=== PATIENT | male | born 1970 | race Caucasian/White ===

== ENCOUNTER 2019-01-09 07:25 | Day surgery (SDC) | payer OTHER ==
[2018-12-25 12:08] VITALS: BMI 40.8
[~2019-01-09 07:25] MED LIST: CEFAZOLIN 2 GM in DEXTROSE 5%-WATER - 50 ML IVPB ONE; CELECOXIB 200 MG CAPSULE PO ONE; GABAPENTIN 300 MG CAPSULE (FP) PO ONE; TRANEXAMIC ACID 1000 MG/10 ML VIAL IVPUSH ONE; oxyCODONE HCL 10 MG SUSTAINED ACTING TABLET PO ONE
[2019-01-09] MEDS ORDERED: ceFAZolin SODIUM 1 GM VIAL ONE ×2 (07:26→09:44)
[2019-01-09] MEDS ORDERED: THROMBIN (RECOMBINANT) 5,000 UNIT VIAL TP ONE (07:26)
[2019-01-09] MEDS ORDERED: GELATIN, ABSORBABLE 12-7MM EACH SPONGE TP ONE (07:26)
[2019-01-09] MEDS ORDERED: oxyCODONE HCL 10 MG SUSTAINED ACTING TABLET PO ONE (07:55)
[2019-01-09] MEDS ORDERED: CELECOXIB 200 MG CAPSULE PO ONE (07:58)
--- NOTE | 2019-01-09 07:58 | HP ---
[facility] - Chief Complaint Chief Complaint: left knee pain - Past Medical History Allergies/Adverse Reactions: Allergies Allergy/AdvReac Type Severity Reaction Status Date / Time No Known Allergies Allergy Verified 07/26/14 07:19 - Current Medications Current Medications: Home Medications Medication Instructions Recorded Naproxen Sodium [Aleve] 440 mg PO BID 12/25/18 Satellite Physical Exam - Physical Examination General Appearance: Well Nourished, Well Developed, Alert & Oriented x3 ENT: Clear Lung: Normal air movement Heart: Regular rate & rhythm Extremities: Other (left knee- +swelling, + ttp medially, decr rom, nvi xrays show grade 4 medial djd) Neurological: Intact, Alert, Oriented Satellite Impression/Plan - Impression/Plan Impression: left knee medial djd Operative Procedure: left medial jenny ukr Date to be Performed: 01/09/19
[2019-01-09] MEDS ORDERED: GABAPENTIN 300 MG CAPSULE (FP) PO ONE (08:00)
[2019-01-09] MEDS ORDERED: ROPIVICAINE 0.2%/MORPH PF/KETOROLAC - 51ML DISP.SYRINGE IA ONE ×3 (08:12→11:17)
[2019-01-09] MEDS ORDERED: MIDAZOLAM HCL 2 MG/2 ML SINGLE DOSE VIAL ONE (08:47)
[2019-01-09] MEDS ORDERED: ROPIVACAINE HCL 0.5% 30ML VIAL ONE (08:48)
[2019-01-09] MEDS ORDERED: ONDANSETRON 4 MG/2 ML VIAL IVPUSH PRN (09:57)
[2019-01-09] MEDS ORDERED: MAG HYDROX/AL HYDROX/SIMETH 30 ML UNIT-DOSE CUP PO PRN (09:57)
[2019-01-09] MEDS ORDERED: LACTATED RINGERS SOLUTION 1,000 ML IV SCH (10:00)
[2019-01-09] MEDS ORDERED: GELATIN, ABSORBABLE 100 EACH SPONGE TP ONE ×2 (10:11→11:17)
[2019-01-09] MEDS ORDERED: THROMBIN (BOVINE) 5,000 UNIT VIAL TP ONE ×2 (10:11→11:17)
--- NOTE | 2019-01-09 11:35 | OP ---
Operative Note - Note: Operative Date: 01/09/19 (tong) Pre-Operative Diagnosis: left knee medial djd Operation: left medial jenny ukr Post-Operative Diagnosis: Same as Pre-op Surgeon: Kam Britt External Auditor: Thomas Narvaez Anesthesiologist/ENVIRONMENTAL PROGRAMS SPECIALIST: Karen Waterman Anesthesia: Spinal, Local Specimens Removed: bone fragments Estimated Blood Loss (mls): 100 Operative Report Dictated: Yes
[2019-01-09] MEDS ORDERED: ACETAMINOPHEN 325 MG TABLET (FP) ONE (12:51)
[2019-01-09] MEDS ORDERED: oxyCODONE HCL 5 MG TABLET PO PRN (12:55)
--- NOTE | 2019-01-09 14:36 | OP ---
DATE OF OPERATION: 01/09/2019 PREOPERATIVE DIAGNOSIS: Degenerative joint disease, left knee. POSTOPERATIVE DIAGNOSIS: Degenerative joint disease, left knee. PROCEDURE: Left medial unicompartmental knee replacement with robotic-assisted navigation (MAKOplasty) and patelloplasty. SURGICAL ATTENDING: Kam Birtt MD SUSPENDER MAKER: BREONNA Cowan ANESTHESIA: Regional and spinal. CLOSURE: Medial unicompartmental GEOFFREY components with a 6 femur, 6 tibia, and an 8 polyethylene; No. 1 Vicryl, fascia; 0 and 2-0, subcutaneous; 3-0 Monocryl subcuticular with skin glue; 4-0 undyed Vicryl for pin sites. ESTIMATED BLOOD LOSS: Negligible. COMPLICATIONS: None. CONDITION: To recovery in stable condition. DESCRIPTION OF OPERATIVE PROCEDURE: Patient was taken to the operating room on January 09, 2019. Spinal and regional anesthesia was administered by the anesthesiologist. IV Kefzol and TXA were administered prophylactically prior to the case. A well-padded pneumatic tourniquet was placed on the left proximal thigh. The left lower extremity was prepped and draped in the usual sterile fashion. A 6- to 8-cm longitudinal incision over the medial side of the patella from mid patella to the tibial tubercle was incised and was deepened using Bovie cautery. An arthrotomy was then made just medial to the patellar tendon and the patella. Subperiosteal dissection was done on the anteromedial proximal tibia all the way back to the MCL. Partial fat pad excision was performed, exposing the medial compartment. Checkpoint was malleable at both the femur and the tibia. Using 2 stab incisions in the femur 1 handbreadth above the patella on the femur and 2 stab incisions 1 handbreadth below the tibial tubercle on the tibia, 2 threaded pins were drilled in parallel fashion from anterior to posterior, going through the proximal cortex and engaging the 2nd but not through the 2nd cortex. To these threaded pins were fastened navigation rays, 1 on the femur and 1 on the tibia. The knee was then registered with the navigation device with the center of the rotation of the hip, medial and lateral malleoli, and multiple points both on the femur and on the tibia. Excellent registration of less than 0.5 mm was obtained on both to ensure adequate registration. The navigation device ensured us to "pop the bubbles" both on the femur and the tibia and that was performed and passed registration. The knee was then thoroughly inspected to remove all osteophytes both on the femur and the tibia. Also, osteophytes on the trochlea and on the surface of the patella were removed as well. The knee was then stressed with valgus stress at 0, 30, 60, 90, and 120 degrees of flexion. This propagated a looseness/tightness graft. The virtual positions of the components were then optimized to ensure an excellent graft. The tracking also was optimized by manipulating the virtual position to ensure that the femoral component articulated with the central portion of the tibial component. The robot was then brought into the field and was registered. The robot was used to bur the bone on both the femur and the tibia as to the specifications of the components. The trial components were then applied on both the femur and the tibia with an appropriate polyethylene insert. The knee was taken through a range of motion and found to have full extension, full flexion, with excellent stability. Stressing the graft revealed an excellent looseness/tightness graft with the trial components in place. The trial components were removed. The knee was thoroughly irrigated with a copious amount of antibiotic irrigation. The real components were then cemented in using modern generation cement techniques with antibiotic cement and pressurization. After the cement was hardened, the knee was thoroughly inspected to remove out all excess cement. The real polyethylene insert was then clipped into place. Range of motion and stability were again assessed to be as they were with the trials. At this time, the pins and the checkpoints were removed. The knee was again thoroughly irrigated. The arthrotomy was closed with No. 1 Vicryl, 0 and 2-0 subcutaneous, and 3-0 Monocryl subcuticular with skin glue for the skin, 4-0 undyed Vicryl for the pin sites. Sterile pressure dressing was placed over the knee. Patient awakened from anesthesia and transferred to recovery in stable condition. No complications. Estimated blood loss negligible. X-rays postoperatively revealed excellent position of the components. Ankit RAMOS/[id number]
[2019-01-09] MEDS: ACETAMINOPHEN 325 MG TABLET (FP) PO SCH (21:39)
[2019-01-09] MEDS: CEFAZOLIN 2 GM/D5W 2 GM/50 ML ML IVPB SCH (21:39)
[2019-01-09] MEDS: SENNOSIDES/DOCUSATE COMBO (SENNA PLUS) TABLET (UD) PO SCH (21:41)
[2019-01-10] MEDS: oxyCODONE HCL 5 MG TABLET PO PRN ×3 (00:30→09:54)
[2019-01-10] MEDS: ACETAMINOPHEN 325 MG TABLET (FP) PO SCH ×3 (00:32→07:49)
[2019-01-10] MEDS: CEFAZOLIN 2 GM/D5W 2 GM/50 ML ML IVPB SCH (01:38)
[2019-01-10 06:30] VITALS: BP 127/77; PULSE 82; TEMP 98.2
[2019-01-10] MEDS: PANTOPRAZOLE 40 MG TABLET (FP) PO SCH ×2 (07:48→09:53)
[2019-01-10] MEDS: SENNOSIDES/DOCUSATE COMBO (SENNA PLUS) TABLET (UD) PO SCH ×2 (07:48→09:54)
[2019-01-10] MEDS: MULTIVITAMINS (DAILY MVI) TABLET (FP) PO SCH ×2 (07:49→09:54)
--- NOTE | 2019-01-10 07:58 | PN ---
Progress Note (short form) - Note Progress Note: Ortho Pt seen and examined s/p left medial jenny ukr pod #1 Selected Entries 01/10/19 05:00 Temperature 98.2 F Pulse Rate 82 Respiratory 19 Rate Blood Pressure 127/77 dressing c/d/i, calf soft, nt rom 0-40, nvi a/p PT dvt ppx pain control d/c home today f/u in 1 week
--- NOTE | 2019-01-10 07:59 | DS ---
Physical Examination Vital Signs: Vital Signs Temperature 98.2 F 01/10/19 05:00 Pulse Rate 82 01/10/19 05:00 Respiratory Rate 19 01/10/19 05:00 Blood Pressure 127/77 01/10/19 05:00 O2 Sat by Pulse Oximetry (%) 97 01/10/19 06:29 Discharge Summary Reason For Visit: OSTEOARTHRITIS Procedures: Principal: left medial jenny ukr Hospital Course: admitted for elective left medial jenny ukr, uneventful post-op, stable for d/c Condition: Good - Instructions Diet, Activity, Other Instructions: Post-op Instructions-Partial Knee Replacement Call the office for a follow-up appointment in 1 week - [phone] Aspirin 325mg daily for 6 weeks. Pain medication was sent into your pharmacy. Apply Graduated Compression Stockings (TEDs) to both lower extremities- remove daily for hygiene ONLY Apply Sequential Compression Device (SCDs) to both Lower extremities remove for PT and hygiene ONLY Apply cold packs to affected area for 15 minutes every 2 hours. Physical Therapist will come to your home for the first 5 days. You will be set up with outpatient PT at your first post-operative visit. Patient may ambulate as tolerated-encourage self care (at least every 2-3 hours while awake) with walker or cane Maintain Aquacel (waterproof) dressing to operative wound (will be removed by surgeon at first office visit) Shower with Aquacel dressing in place-if Aquacel integrity compromised, remove and apply dry sterile dressing and notify Orthopedist. DO NOT SHOWER unless Orthopedists approves without Aquacel dressing CONTACT THE OFFICE FOR ANY CHANGE IN YOUR CONDITION (for example-fever greater than 102 degrees, excessive bleeding from operative site, purulent drainage, severe swelling or pain) GO TO THE EMERGENCY ROOM IF THERE IS A MEDICAL EMERGENCY Knee Precautions: * Keep a rolled towel under affected heel while in bed or chair (to keep knee in extension) * Keep affected leg elevated except during mealtimes * DO NOT PLACE PILLOW UNDER AFFECTED KNEE * If you have any questions, please do not hesitate to call the office - [phone]. Referrals: Kam Britt MD [Staff Physician] - Disposition: VNS/HOME HEALTH CARE - Home Medications Comprehensive Discharge Medication List: Ambulatory Orders Naproxen Sodium [Aleve] 440 mg PO BID 12/25/18 Aspirin [ASA -] 325 mg PO DAILY@0800 tablet 01/09/19 Oxycodone HCl/Acetaminophen [Percocet 5-325 mg Tablet -] 1 - 2 tab PO Q6H #50 tab MDD 8 01/09/19
[2019-01-10] MEDS ORDERED: ASPIRIN 325 MG TABLET PO SCH (08:00)
== END 2019-01-10 12:37 | disposition home health service (06) ==
LOC: FM/S 07:25 → FASUSAT 07:25
PROVIDERS: ATTEND Orthopaedic Surgery
PROC: 8E0YXBZ Computer Assisted Procedure of Lower Extremity (ICD-10-PCS; 2019-01-09)
PROC: 8E0Y0CZ Robotic Assisted Procedure of Lower Extremity, Open Approach (ICD-10-PCS; 2019-01-09)
PROC: 0SRD0L9 Replacement of Left Knee Joint with Medial Unicondylar Synthetic Substitute, Cemented, Open Approach (ICD-10-PCS; principal; 2019-01-09 10:04)
DX: M17.12 Unilateral primary osteoarthritis, left knee (principal)
CPT/HCPCS: 20985; 27446; C1776; S2900; 73560-TC-LT-FY; 94760; 97116-GP; 97163-GP

== ENCOUNTER 2019-01-17 02:50 | Emergency (ER) | payer OTHER ==
[2019-01-17 03:22] VITALS: BP 130/77; PULSE 86; TEMP 98; BMI 39.5
--- NOTE | 2019-01-17 04:19 | PDOC ---
*Physical Exam - Vital Signs Last Vital Signs Temp Pulse Resp BP Pulse Ox 98 F 86 19 130/77 99 01/17/19 02:50 01/17/19 02:50 01/17/19 02:50 01/17/19 02:50 01/17/19 02:50 Medical Decision Making - Medical Decision Making 01/17/19 04:18 Patient seen by the advanced practice provider under my direct supervision. Ancillary testing reviewed as necessary. I agree with plan as outlined by the advanced practice provider. *DC/Admit/Observation/Transfer Diagnosis at time of Disposition: Adverse drug reaction - Discharge Dispostion Condition at time of disposition: Fair - Referrals Referrals: Boris Grady MD [Primary Care Provider] - - Patient Instructions - Post Discharge Activity
--- NOTE | 2019-01-17 04:38 | PDOC ---
History of Present Illness - General Chief Complaint: RX Refill Stated Complaint: MEDICATION PROBLEM Time Seen by Provider: 01/17/19 04:12 History Source: Patient, Spouse - History of Present Illness Initial Comments: 01/17/19 06:16 48-year-old male status post January 11 complaining of pleuritic chest pain suddenly last night after taking 2 Tylenol extra strength and one Stuart. Patient reports the overall "panicked "feeling has gone away. Patient reports that the pleuritic pain still is there. Patient denies fevers/chills, nausea, vomiting, abdominal pain, diaphoresis, tachycardia. Knee surgical site slight swelling and redness. says the knee looks better. Patient denies any pain to legs. Past History - Past Medical History Allergies/Adverse Reactions: Allergies Allergy/AdvReac Type Severity Reaction Status Date / Time No Known Allergies Allergy Verified 01/17/19 03:23 Home Medications: Ambulatory Orders Aspirin [ASA -] 325 mg PO DAILY@0800 tablet 01/09/19 Oxycodone HCl/Acetaminophen [Percocet 5-325 mg Tablet -] 1 - 2 tab PO Q6H #50 tab MDD 8 01/09/19 Anemia: No Asthma: No Cancer: No Cardiac Disorders: No CVA: No COPD: No CHF: No Dementia: No Diabetes: No GI Disorders: No Disorders: No HTN: No Hypercholesterolemia: Yes (BORDERLINE/NO MEDS) Liver Disease: No Seizures: No Thyroid Disease: No - Surgical History Abdominal Surgery: Yes (hernia) Appendectomy: No Cardiac Surgery: No Cholecystectomy: No Lung Surgery: No Neurologic Surgery: No Orthopedic Surgery: Yes - Suicide/Smoking/Psychosocial Hx Smoking Status: No Smoking History: Never smoked Have you smoked in the past 12 months: No Number of Cigarettes Smoked Daily: 0 If you are a former smoker, when did you quit?: EXCEPT [place] Information on smoking cessation initiated: No Hx Alcohol Use: No Drug/Substance Use Hx: No Substance Use Type: None Hx Substance Use Treatment: No Review of Systems - Review of Systems Able to Perform ROS?: Yes Is the patient limited Kiswahili proficient: No Constitutional: No: Symptoms Reported, See HPI, Chills, Diaphoresis, Fever, Loss of Appetite, Malaise, Night Sweats, Weakness, Weight Stable, Unintentional Wgt. Loss, Unexplained wgt Loss, Other HEENTM: No: Symptoms Reported, See HPI, Eye Pain, Blurred Vision, Tearing, Recent change in vision, Double Vision, Cataracts, Ear Pain, Ocular Prothesis, Ear Discharge, Nose Pain, Nose Congestion, Tinnitus, Nose Bleeding, Hearing Loss , Throat Pain, Throat Swelling, Mouth Pain, Dental Problems, Difficulty Swallowing, Mouth Swelling, Other Cardiac (ROS): Yes: Lightheadedness, Chest Tightness. No: Symptoms Reported, See HPI, Edema, Irregular Heart Rate, Palpitations, Syncope, Other ABD/GI: No: Symptoms Reported, See HPI, Abdominal Distended, Abd. Pain w/ defecation, Blood Streaked Bowels, Constipated, Diarrhea, Difficulty Swallowing , Nausea, Poor Appetite, Poor Fluid Intake, Rectal Bleeding, Vomiting, Indigestion, Abdominal cramping, Tarry Stools, Other *Physical Exam - Vital Signs Last Vital Signs Temp Pulse Resp BP Pulse Ox 98 F 86 19 130/77 99 01/17/19 02:50 01/17/19 02:50 01/17/19 02:50 01/17/19 02:50 01/17/19 02:50 - Physical Exam General Appearance: Yes: Appropriately Dressed Respiratory/Chest: positive: Lungs Clear, Normal Breath Sounds Cardiovascular: positive: Regular Rhythm, Regular Rate Gastrointestinal/Abdominal: positive: Normal Bowel Sounds, Soft Heart Score/ECG Review - ECG Intrepretation Rhythm: Regular Rhythm Comment:: 01/17/19 06:19 Sinus bradycardia ED Treatment Course - LABORATORY CBC & Chemistry Diagram: 01/17/19 05:01 01/17/19 05:01 Medical Decision Making - Medical Decision Making 01/17/19 06:22 A: pleuritic chest pain P: labs ekg CTA chest : due to recent ortho surgery. NO PE 01/17/19 06:48 *DC/Admit/Observation/Transfer Diagnosis at time of Disposition: Pleuritic chest pain Adverse drug reaction Qualifiers: Encounter type: initial encounter Qualified Code(s): T50.905A - Adverse effect of unspecified drugs, medicaments and biological substances, initial encounter - Discharge Dispostion Disposition: HOME Condition at time of disposition: Fair - Referrals Referrals: Boris Grady MD [Primary Care Provider] - Kam Britt MD [Staff Physician] - - Patient Instructions Printed Discharge Instructions: DI for Atypical Chest Pain Additional Instructions: please follow up with your orthopedic doctr your cat scan showed no PE> do not mix tylenol and norco. do not > 4000mg tylenol daily. Additional Instructions: * Please call your personal physician to report your Emergency Department visit and to report your progress, if any. * If there is no improvement in symptoms in 2 days call your physician. * Return to the Emergency Department for any worsening symptoms. - Post Discharge Activity
[2019-01-17 05:28] LABS: BASO % 0.8 % (0-2.0); EOS % 3.1 % (0-4.5); HEMATOCRIT 44.7 % (35.4-49); HEMOGLOBIN 14.8 GM/dL (11.7-16.9); LYMPH % 20.6 % (8-40); MCH 29.1 pg (25.7-33.7); MCHC 33.2 g/dl (32.0-35.9); MEAN CELL VOLUME 87.6 fl (80-96); MEAN PLT VOLUME 7.2 fl (7.5-11.1); MONO % 9.1 % (3.8-10.2); NEUT % 66.4 % (42.8-82.8); PLATELET COUNT 332 K/MM3 (134-434); RDW 12.8 % (11.9-15.9); WHITE BLOOD COUNT 8.2 K/mm3 (4.0-10.0)
[2019-01-17 05:43] LABS: ALBUMIN 3.6 g/dl (3.4-5.0); ALK PHOS 95 U/L (45-117); ANION GAP 5 MMOL/L (8-16); BILIRUBIN,TOTAL 0.3 mg/dL (0.2-1); BLOOD UREA NITROGEN 17 mg/dL (7-18); CALCIUM 8.9 mg/dL (8.5-10.1); CHLORIDE 106 mmol/L (98-107); CO2 30 mmol/L (21-32); CREATININE 1.1 mg/dL (0.55-1.3); GLUCOSE,RANDOM 110 mg/dL (74-106); POTASSIUM 4.4 mmol/L (3.5-5.1); SGOT/AST 23 U/L (15-37); SGPT/ALT 30 U/L (13-61); SODIUM 141 mmol/L (136-145)
--- NOTE | 2019-01-17 08:28 | EKG ---
Test Reason : Blood Pressure : / mmHG Vent. Rate : 059 BPM Atrial Rate : 059 BPM P-R Int : 148 ms QRS Dur : 100 ms QT Int : 406 ms P-R-T Axes : 023 035 018 degrees QTc Int : 401 ms SINUS BRADYCARDIA OTHERWISE NORMAL ECG NO PREVIOUS ECGS AVAILABLE Confirmed by LOW BENITEZ, MISA ([id number]) on 01/17/2019 8:28:01 AM Referred By: Confirmed By:MISA KELSEY MD
== END 2019-01-17 07:23 | disposition home or self-care (01) ==
LOC: JER 02:50
DX: R07.89 Other chest pain (principal); R07.81 Pleurodynia; T50.995A Adverse effect of other drugs, medicaments and biological substances, initial encounter; Y92.018 Other place in single-family (private) house as the place of occurrence of the external cause
CPT/HCPCS: 36415; 71275-TC; 80053; 80307; 82550; 84484; 85025; 93005; 93010; 99282-25

== ENCOUNTER 2022-03-07 17:12 | Emergency (ER) | payer OTHER ==
[2022-03-07 17:22] VITALS: BP 119/82; PULSE 83; TEMP 98; BMI 39.5
[2022-03-07] MEDS ORDERED: COLCHICINE 0.6 MG CAP PO ONE (18:10)
[2022-03-07] MEDS ORDERED: COLCHICINE 0.6 MG TAB ONE (18:21)
== END 2022-03-07 19:07 | disposition home or self-care (01) ==
LOC: JERFT 17:12
DX: M10.9 Gout, unspecified (principal)
CPT/HCPCS: 73630-TC-RT-FY; 99283-25